=== PATIENT | female | born 1955 | race Caucasian/White ===

== ENCOUNTER → 2017-03-03 | Outpatient (CLI) | payer OTHER | END | disposition home or self-care (01) | LOC: RAD 10:53 | DX: R06.2 Wheezing (principal); Z87.891 Personal history of nicotine dependence ==

== ENCOUNTER → 2017-04-15 | Day surgery (SDC) | payer OTHER ==
[~2017-04-15] VITALS: Ht 167.6 cm; Wt 62.6 kg
[~2017-04-15] MED LIST: ALPRAZOLAM0.25 M2 PO; SIMVASTATIN40 MG PO; VENLAFAXINE HYD75 M3 PO
--- NOTE | ~2017-04-15 | O ---
[place], [place] OPERATIVE NOTE NAME: ELBA JOAQUIN UNIT #: [id number] ROOM: DOCTOR: HARESH CLAY MD BIRTHDATE: [birth year] DOS: 04/15/2017 GASTROENDOSCOPIC REPORT INDICATIONS: This is a 62-year-old patient, who has presented for colonic screening, undergoing investigation. ALLERGIES: No known medication. FAMILY HISTORY: Grandmother with colonic polyp. PAST SURGICAL HISTORY: Hysterectomy, tonsillectomy. PAST MEDICAL HISTORY: Hypercholesterolemia and depression. SOCIAL HISTORY: Nonsmoker, social alcohol consumption. PROCEDURE: Today's procedure part of investigation is colonoscopy plus polypectomies. PREMEDICATION: Versed and Diprivan. SCOPE: Olympus folding colonoscope 10L video. REPORT: After putting the patient in left lateral position and application of lubricant to rectal pouch and digital examination, the scope was introduced. Thereafter, under direct visualization, I advanced through the length of colon without difficulty. Base of the cecum explored, appendiceal orifice identified, ileocecal valve was defined. Scope was gradually withdrawn from ascending, transverse, descending colon. Diverticulosis of moderate degree in the left side of the colon extending to the transverse colon was noticed. Redundancy of the colon appreciated. Tortuosity seen. Base of cecum was photographed. Ileocecal valve was defined. Scope was gradually withdrawn back to the rectal pouch to very small sessile polypoid lesion, each about 2.5 mm with piecemeal polypectomy removed. Air was suctioned out. The patient was extubated, tolerated procedure well. IMPRESSION: Redundant colon, tortuous colon, sessile colonic polyp rectal pouch, status post piecemeal polypectomy. PLAN AND DISCUSSION: Two weeks office followup for review of biopsies, high fiber diet in general, and she may not need another colonoscopy upto 5 years unless biopsies dictate otherwise. Thank you very much again. [place], [place] OPERATIVE NOTE NAME: ELBA JOAQUIN UNIT #: [id number] ROOM: DOCTOR: HARESH CLAY MD BIRTHDATE: [birth year] HARESH CLAY MD CM:OPRECORD:OPERATIVE NOTE [id number] HARESH CLAY MD 04/15/17 172 interface
[2017-04-15 13:17] VITALS: BP 130/77
[2017-04-15 16:20] VITALS: BP 107/68
[2017-04-15 16:35] VITALS: BP 112/69
[2017-04-15 16:48] VITALS: BP 110/64
== END | disposition home or self-care (01) ==
LOC: SDC 04-12 13:15
DX: Z12.11 Encounter for screening for malignant neoplasm of colon (principal); K62.1 Rectal polyp; Z83.71 Family history of colonic polyps; Z90.710 Acquired absence of both cervix and uterus; E78.00 Pure hypercholesterolemia, unspecified; F32.9 Major depressive disorder, single episode, unspecified; K57.30 Diverticulosis of large intestine without perforation or abscess without bleeding; K63.89 Other specified diseases of intestine; F41.9 Anxiety disorder, unspecified; Z98.51 Tubal ligation status; Z79.899 Other long term (current) drug therapy

== ENCOUNTER 2017-11-03 08:25 | Emergency (ER) | payer OTHER ==
[~2017-11-03] VITALS: Ht 165.1 cm; Wt 61.2 kg
== END 2017-11-03 09:35 | disposition home or self-care (01) ==
LOC: ED 08:25
DX: S81.811A Laceration without foreign body, right lower leg, initial encounter (principal); Z91.040 Latex allergy status; Z79.899 Other long term (current) drug therapy; W45.0XXA Nail entering through skin, initial encounter; Y93.89 Activity, other specified; Y92.89 Other specified places as the place of occurrence of the external cause; Y99.8 Other external cause status